=== PATIENT | male | born 1995 | race Caucasian/White ===

== ENCOUNTER 2025-06-04 14:17 | Outpatient (AMB) | payer OTHER, SELFPAY ==
--- NOTE | 2025-06-04 14:21 | A.OFFPC_ITS ---
Vital Signs 06/04/25 14:27 Height 5 ft 9.29 in Weight 141 lb 4 oz BMI 20.7 BP 111/69 Blood Pressure Location Lt brachial Position Sitting Pulse 82 Pulse Source Pulse Oximeter Temp 98.1 F Temp Source Oral Pulse Oximetry (%) 95 Oxygen Delivery Method Room Air Intake Visit Reasons: Weight management Intake Note: dysuria, ?infected left big toe Accompanied by: Self / Same As Patient Allergies No Known Allergies Allergy (Verified 06/04/25 14:29) Medication List - Last Reconciled 06/04/25 by Omega Ocampo MD famotidine 40 mg PO DAILY Tobacco use date assessed: 06/04/25 Dental Screening Dental Screen Date: 06/04/25 Did you have a dental visit in the last 12 months?: Yes HPI HPI Comments History of Present Illness Details History of Present Illness The patient is a 29 year old male presenting to [facility] care and to be evaluated for a broken wrist, suspected UTI, fatigue, weight loss, and abdominal pain. Left Radius Fracture: The patient sustained a left radius fracture after falling from a pull-up bar while practicing [employer]. The fracture is described as non-displaced. He is currently taking tramadol for pain and is scheduled to follow up with a specialist next week to determine if surgery is required. Suspected Urinary Tract Infection: The patient reports a random onset of dysuria and increased urinary frequency that began last week. He denies any associated fevers or chills. Fatigue and Unintentional Weight Loss: The patient reports feeling very tired every day and has noticed a decrease in his energy levels, despite going to the gym three times a week. He has also experienced unintentional weight loss, with his weight decreasing from his usual 140-150 lbs to his current weight of 136 lbs. Abdominal Pain: The patient describes a constant pain located under his left ribs that has been present for the past couple of months. The pain occurs when he eats or digests food. He denies any associated gas or acid reflux. Constipation: He reports being constipated for the past week and has been attempting to manage it by drinking prune juice. Painful Lesion on Left Great Toe: For the past year, the patient has had a painful lesion on his left great toe. He describes the pain as being on the inside of the lesion, noticed when stepping on it. He has tried using corn medication and has scraped it himself without resolution. Right Shoulder Pain: The patient reports that his right shoulder has popped out and has been bothering him, but he has not had it medically evaluated. Surgical History: - No prior surgical history. - In-office needle drainage of a throat cyst by an ENT specialist approximately 1-2 months ago. Medications: - Tramadol, taken for pain from broken w rist. 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 - Substance Use: He reports smoking omer sebastianana since age 12, currently about two blunts per day. - Sexual History: He is sexually active and reports using protection. - Exercise: He goes to the gym three tong es per week and participates in [employer]. Family History: - Father: History of cancer, type unspec ified. - Grandmother: History of cancer, type u nspecified. - Mother: History of diabetes. Past Medical History - Patient reports no major medical issue s. - History of a throat cyst, which was dr ge via needle aspiration by an ENT specialist 1-2 months ago. - Tonsillectomy was suggested by the ENT but has not been scheduled. Health Maintenance - The patient is a 29-year-old male esta [facility] primary care. - He has been advised that at his age, s creenings such as for colon cancer are not yet indicated. - Comprehensive baseline lab work, inclu ding STD screening, has been ordered. [facility] Family History (Updated 06/04/25 @ 14:30 by Rebecca Pedraza [facility]) Mother Diabetes Father Heart murmur Social History Housing: House Patient Tobacco Use Status: Never used Tobacco e-Cigarette/Vaping Use: Never Used service: No Current occupational status: unemployed Cognitive needs: No Hearing needs: No Vision needs: No Questionnaire PHQ-9 Over the last 2 weeks, how often have you been bothered by any of the following problems? 1. Little interest or pleasure in doing things: not at all 2. Feeling down, depressed, or hopeless: not at all 3. Trouble falling or staying asleep, or sleeping too much: several days 4. Feeling tired or having little energy: several days 5. Poor appetite or overeating: several days 6. Feeling bad about yourself - or that you are a failure or have let yourself or your family down: not at all 7. Trouble concentrating on things, such as reading the newspaper or watching television: not at all 8. Moving or speaking so slowly that other people could have noticed. Or the opposite - being so fidgety or restless that you have been moving around a lot more than usual: not at all 9. Thoughts that you would be better off or of hurting yourself in some way: not at all Total score: 3 Depression Screening Interpretation: Negative Depression Screening Done: Yes Source: Developed by Drs. Shaji Mejia, Jessica Mata, Ross Maldonado and colleagues, with an educational sj from [employer]. Thrive Questionnaire Date Thrive assessed: 06/04/25 I am a: Patient What is your living situation today?: I have a steady place to live Within the past 12 months, did the food you bought not last and you didn't have the money to get more?: Sometimes True Within the past 12 months, did you worry whether your food would run out before you got money to buy more?: Sometimes True Do you have trouble paying for medicines?: No Do you have trouble getting transportation to medical appointments?: No Do you have trouble paying your heating and electricity bill?: No Do you have trouble taking care of your child, family member or friend?: No Do you have trouble with day-to-day activities such as bathing, preparing meals, shopping, managing finances, etc.?: No Are you currently unemployed and looking for a job?: No Are you interested in more education?: No Please select the resources that you would like help with: None Currently or been in a relationship where the following occur: I choose not to answer THRIVE Score: 2 AUDIT C Alcohol Use Questionnaire (AUDIT-C) 1. How often do you have a drink containing alcohol?: Never Total Score: 0 VIDA-7 AMB Questionnaire VIDA-7 Date VIDA - 7 assessed: 06/04/25 Feeling nervous, anxious, or on edge: 0 = Not at all Not being able to stop or control worryin = Several days Worrying too much about different things: 1 = Several days Trouble relaxin = Several days Being so restless that it is hard to sit still: 0 = Not at all Becoming easily annoyed or irritable: 1 = Several days Feeling afraid as if something awful might happen: 0 = Not at all Total VIDA-7 score (0-4 normal; 5-9 mild; 10-14 moderate; 15-21 severe): 4 Source: Developed by Drs. Shaji Mejia, Jessica Mata, Ross Maldonado and colleagues, with an educational sj from [employer]. Review of Systems Narrative Review of Systems - Constitutional: Reports fatigue, low energy, and unintentional weight loss. - Denies fevers or chills. - Genitourinary: Reports dysuria and increased urinary frequency. - Gastrointestinal: Reports constant postprandial pain under the left ribs and constipation. - Denies gas or acid reflux. - Musculoskeletal: Reports pain from a left wrist fracture and a right shoulder that has previously popped out. - Integumentary: Reports a painful lesion on the left great toe for the past year. 10-point ROS reviewed and negative except as noted in HPI Physical exam (Primary Care) Vital Signs: Last Vital Signs Temp 98.1 F 06/04/25 14:27 Pulse 82 06/04/25 14:27 BP 111/69 06/04/25 14:27 Pulse Ox 95 06/04/25 14:27 Oxygen Delivery Method Room Air 06/04/25 14:27 BMI result Body Mass Index 20.7 Tobacco/Smoking Status: Tobacco use Status Tobacco use date assessed 06/04/25 06/04/25 14:23 Patient Tobacco Use Status Never used Tobacco 06/04/25 14:34 e-Cigarette/Vaping Use Never Used 06/04/25 14:23 PHQ-9: PHQ-9 Score PHQ-9: Total score 3 06/04/25 14:23 Depression Screening Interpretation: Negative Thrive Assessment: Date of Thrive Assessment Date Thrive assessed 06/04/25 06/04/25 14:23 Currently or been in a relationship where the following occur: I choose not to answer Narrative Physical Exam General: Well-appearing, in no acute distress. Vital signs: Within normal limits. HEENT: Normocephalic, atraumatic. PERRLA, EOMI. Conjunctiva clear, sclera anicteric. Oropharynx clear, mucous membranes moist. TMs intact bilaterally. Slight redness in the ear canal, possibly due to Q-tip use. Neck: Supple, no lymphadenopathy, no thyromegaly, no JVD or carotid bruits. Cardiovascular: RRR, normal S1/S2, no murmurs, rubs, or gallops. Peripheral pulses 2+ and symmetric. No edema. Respiratory: Lungs clear to auscultation bilaterally, no wheezes, rales, or rhonchi. Normal effort. Abdomen: Soft, non-tender, non-distended. Normoactive bowel sounds. No hepatosplenomegaly, no masses. Reports constant pain under the left ribs when eating. MSK: Full range of motion, no joint swelling or deformity. Normal gait. Right shoulder has a history of dislocation and is currently bothering the patient. Left wrist with radial fracture. Skin: Warm, dry, intact. No rashes, lesions, or pallor. Callus or possible wart on the left big toe, painful upon stepping. Neuro: Alert and oriented x3. Cranial nerves II-XII intact. Strength 5/5 throughout. Sensation intact. Reflexes 2+ symmetric. Normal coordination and gait. Psych: Appropriate mood and affect. Normal judgment and insight. Reports feeling tired and losing weight, with a current weight of 136 lbs, down from 140-150 lbs. Coding Level of Care Code New Pt Level 4 (59702) Add On Problem Visit Only Diagnoses Left radial fracture S52.92XA UTI (urinary tract infection) N39.0 Fatigue R53.83 Unintentional weight loss R63.4 Abdominal pain R10.9 Constipation K59.00 Right shoulder injury S49.91XA Corns and callus L84 Assessment & Plan Assessment & Plan (1) Left radial fracture: Code(s): S52.92XA - Unspecified fracture of left forearm, initial encounter for closed fracture Category: Medical (2) UTI (urinary tract infection): Code(s): N39.0 - Urinary tract infection, site not specified Category: Medical (3) Fatigue: Code(s): R53.83 - Other fatigue Category: Medical (4) Unintentional weight loss: Code(s): R63.4 - Abnormal weight loss Category: Medical (5) Abdominal pain: Code(s): R10.9 - Unspecified abdominal pain Category: Medical (6) Constipation: Code(s): K59.00 - Constipation, unspecified Category: Medical (7) Right shoulder injury: Code(s): S49.91XA - Unspecified injury of right shoulder and upper arm, initial encounter Category: Medical (8) Corns and callus: Code(s): L84 - Corns and callosities Category: Medical Plan Consent The risks, benefits, and alternatives of obtaining comprehensive bloodwork were discussed with the patient. The planned tests, including a comprehensive metabolic panel, complete blood count, HbA1c, hepatitis panel, HIV, lipid panel, magnesium, thyroid studies, vitamin B12, folate, vitamin D, and testosterone levels, were reviewed. The patient also requested and consented to additional screening for chlamydia and gonorrhea. He verbally agreed to proceed with the proposed laboratory testing. Patient was informed and verbally consented to the use of an ambient scribe for clinic note documentation during this visit. Plan 1. Establishment Of Care And Health Maintenance - Comprehensive lab work was ordered for a baseline health overview, including a CMP, CBC, HbA1c, lipid panel, magnesium, thyroid function tests, vitamin B12, folate, and vitamin D levels. - Follow-up appointment scheduled in two weeks to review lab results. 2. Fatigue And Unintentional Weight Loss - To investigate potential etiologies, a testosterone level was added to the comprehensive lab panel. - Further assessment will be guided by the results of the complete lab workup, including thyroid function, CBC, and vitamin levels. 3. Abdominal Pain - A trial of famotidine was prescribed to be taken in the morning to assess for an acid-related etiology. - The patient will monitor his symptoms and report on the medication's effectiveness at the follow-up visit. 4. Dysuria And Urinary Frequency - Urinalysis was included in the day's lab orders to evaluate for a urinary tract infection. 5. Screening For Sexually Transmitted Infections - Panel for HIV, hepatitis B, hepatitis C, and syphilis was ordered. - Per the patient's request, testing for chlamydia and gonorrhea was also added. 6. Left Radius Fracture - The patient will continue to follow up with his surgical nurse for ongoing management and to handle any necessary paperwork. 7. Painful Lesion On Left Great Toe - A referral was placed to a assistant professor of psychology, Dr. Guillaume, for further evaluation and management of the lesion, which is suspected to be a plantar wart. 8. Constipation - The patient was advised to increase water intake and utilize zgpt-rik-xeuzauj options such as prune juice, prunes, or MiraLAX for relief. Discussion Notes As this was our first meeting, I explained to the patient the need for comprehensive bloodwork to get a baseline overview of his health. I reviewed the list of labs, which will screen for metabolic issues, anemia, diabetes, infections, thyroid dysfunction, and vitamin deficiencies, as these could con tribute to his fatigue and weight loss. At his request, I also added a testosterone level and screenings for chlamydia and gonorrhea. For his LUQ pain, I suspect an acid-related issue and have prescribed a trial of famotidine. I advised him to follow up in two weeks, at which point we will review all lab results and assess the efficacy of the famotidine. Regarding the painful lesion on his toe, I believe it is more likely a plantar wart than a fungus, and I have referred him to podiatry for definitive diagnosis and treatment. We also discussed that management of his wrist fracture should cont inue under the care of his strategic communications specialist. Patient Instructions - Please go to the lab to have your blood and urine collected today. - will send empiric antibiotics for suspected urinary tract infection - Make sure your lab work is completed before your follow-up appointment in two weeks. - Take one tablet of famotidine each morning for your stomach pain. - For constipation, drink plenty of water and you may use glin-rqg-flfuzlc remedies like prune juice or MiraLAX. - We have sent a referral for you to see the foot doctor (assistant professor of psychology) for the painful spot on your big toe. - Continue to follow the instructions from your wrist specialist regarding your fracture. - Your prescription for famotidine has been sent to the [facility] on [facility]. Medical Decision Making The patient is a 29-year-old male presenting to [facility] primary care with multiple acute and chronic complaints. His constellation of symptoms, including significant fatigue, unintentional weight loss, and low energy, necessitates a broad initial laboratory workup to rule out common etiologies such as anemia, thyroid dysfunction, metabolic abnormalities, vitamin deficiencies, and hypogonadism. His urinary symptoms of dysuria and frequency are suspicious for a UTI, which will be evaluated with urinalysis. The patient's constant epigastric pain related to eating, although lacking classic reflux symptoms, warrants an empiric trial of an H2 leticia; therefore, I have prescribed famotidine. His painful plantar lesion on the left great toe, present for a year and painful with pressure, is clinically more consistent with a plantar wart than a fungus, justifying a referral to podiatry for probable ablation or treatment. Management of his acute left radius fracture will be deferred to the strategic communications specialist he is already established with. Given his sexual activity, comprehensive STD screening is prudent and was ordered per his request. The plan is to review all diagnostic findings at a 2-week follow-up to formulate a more targeted management strategy. Total Time Statement 30 min Total time spent caring for the patient today includes pre-visit chart review, documentation, review of laboratory and diagnostic imaging results, medication reconciliation, medically necessary evaluation, counseling on diagnoses, care coordination, ordering appropriate tests and medications, review of tests performed by other providers, reporting test results to the patient, and communication with other healthcare providers. Orders: Orders Syphilis Screen Today Z13.9 - Encounter for screening, unspecified Comprehensive Met. Panel Today Z13.9 - Encounter for screening, unspecified Hepatitis C Antibody Today Z13.9 - Encounter for screening, unspecified HIV Ab/Ag Today Z13.9 - Encounter for screening, unspecified Hepatitis B Surface Antibody Today Z13.9 - Encounter for screening, unspecified Testosterone, Free/Total Today Z13.9 - Encounter for screening, unspecified Influenza [id number] Immunization Today Z23 - Encounter for immunization Complete Blood Count Auto Diff Today Z13.9 - Encounter for screening, unspecified Hepatitis B Surface Antigen Today Z13.9 - Encounter for screening, unspecified TSH reflex Free T4 Today Z13.9 - Encounter for screening, unspecified UA CC w/rflx Micro + Cult Today Z13.9 - Encounter for screening, unspecified Lipid Panel Today Z13.9 - Encounter for screening, unspecified Vitamin B12 and Folate Today Z13.9 - Encounter for screening, unspecified Hemoglobin A1c Today Z13.9 - Encounter for screening, unspecified Magnesium Today Z13.9 - Encounter for screening, unspecified Vitamin D 25-OH (D2 and D3) Today Z13.9 - Encounter for screening, unspecified CT NG by PCR Urine Today Z13.9 - Encounter for screening, unspecified Referrals Podiatry Referral L84 - Corns and callosities Medications: New Fluarix [id number] (PF) (flu vac ts 2024-(6mos up)-PF) 0.5 mL IM ONCE 0.5 mL 0RF NS Z23 - Encounter for immunization famotidine 40 mg PO DAILY 30 tabs 0RF nitrofurantoin macrocrystal must administer with a meal/food 100 mg PO Q12H 10 caps 0RF
[2025-06-04 14:27] VITALS: BP 111/69; PULSE 82; TEMP 36.7; O2SAT 95; BMI 20.7
--- OUTSIDE RECORDS SUMMARY | 2025-06-04 15:36 | XMS_ITS | Clinical Summary ---
Author Organization [facility] Address [address] [place], [place] [id number] Phone Care Team Providers Care Percussion Teacher Name Role Phone Pcp, Unknown Primary Care Provider Unavailabl e Social History Tobacco Use Types Packs/Day Years Used Date Smoking Tobacco: Never Assessed Education Answer Date Recorded Are you interested in more education? Not on christiana e 10/09/2022 Are you concerned about learning? Not on file 10/09/2022 No 10/09/2022 No 10/09/2022 Digital Access Answer Date Recorded No 11/09/2022 No 11/09/2022 Reliable internet access at home? Not on file 11/09/2022 Device with a working camera? Not on file Sex and Gender Information Value Date Recorded Sex Assigned at Not on file Legal Sex Male 2:55 PM EDT Gender Identity Not on file Sexual Orientation Not on file Plan of Treatment Not on file Medical Devices Not on file Care Teams Percussion Teacher Relationship Specialty Start Date End Date Pcp, Unknown PCP - General 01/18/22 Additional Source Comments The information contained in this document represents components of the legal health record. It is not the complete legal health record.[facility]
--- OUTSIDE RECORDS SUMMARY | 2025-06-04 15:36 | XMS_ITS | Data Portability ---
Author Organization [place] - [facility], Allergy Address [address] [place] [phone] Assessment No assessment recorded. Plan of Treatment Reminders Order Date Submit Date Provider Last Modified By Organization Details Last Modified Time Details Appointments None recorded. Lab None recorded. Referral None recorded. Procedures None recorded. Surgeries tonsillect jessica (SURG) 2024 025 [email or web address] Not available 5 06:49:03 Imaging None recorded. Medication Orders None recorded. Patient TargetsNo targets recorded. Patient InstructionsNo instructions recorded. Reason for Referral None Reported. Problems Name Problem SNOMED Code Status Onset Date Resolution Date Notes Provider Name and Address Organization Details Recorded Time Peritonsillar abscess 58055011 Active 2024 MONROE SANCHEZ MD [address] [place] [address], [phone], [facility] - [facility] 5 09:39:56 Problem Notes None recorded. Procedures Surgical History Date Name Laterality Status Provider Name and Address Organization Details Recorded Time 12/22/19 25 I & D Peritonsillar Abscess completed MONROE SANCHEZ MD [address] [place] [address], [phone], [facility] - [facility] 12/21/2024 09:39:44 Imaging Results None recorded. Procedure Notes None recorded. Medical Equipment None Reported. Allergies No known drug allergies Medications Name Sig Start Date Stop Date Status Note LastModified by Organization Details LastModified Time amoxicillin 500 mg tablet Take 1 tablet every 8 hours by oral route. active Not Available Not Available No t Available Tylenol 325 mg tablet Take 2 tablets every 6 hours by oral route. active Not Available Not Available No t Available Vitals Date Recorded Body height Body mass index (BMI) Body weight Provider Name and Address Organization Details Last Updated DateTime 12/21/2024 167.64 cm 22.6 kg/m2 04147.93 g Valeria Reid [place] - [facility] 12/21/2024 09:23:07 Social History None recorded. Functional Status None recorded. Mental Status None recorded. Family History Nothing Reported. Medical History No medical history recorded. Past Encounters Encounter ID Performer Location Encounter Start Date Encounter Closed Date Diagnosis/Indication Diagnosis SNOMED-CT Code Diagnosis ICD10 Code Diagnosis IMO Codes Diagnosis Note [id number] MONROE SANCHEZ MD [facility] [address] [phone] 12/21/2024 08:54:37 12/21/2024 09:55:32 Peritonsillar abscess [id number] J36 [id number] 29-year-ol d male presents today for evaluation of right sided [employer]. He had a CT scan showing 2 cm irregular collection in the right tonsil. He feels improved with medical management . He does have fullness and erythema at the right soft palate. There was purulent drainage with aspiration so I did perform incision and drainage which he did tolerate with some discomfort . We discussed symptoms which would necessitat e repeat evaluation and drainage. He should finish the antibiotic s which were prescribed in the emergency department . He has had 2 peritonsil lar abscesses requiring drainage. I recommende d tonsillect jessica. Follow-up in 1 to 2 weeks to discuss further. I would recommend that the abscess heals fully prior to surgery which should be at minimum 6 weeks out. Health Concerns Section Related Observation LastModified by Organization Detai ls LastModified Time None Recorded Concern Status LastModified by Organization Details LastModified Time None Recorded Advance Directives Directive None Recorded Payers Insurance Date Sequence Insurance Name Policy Number Policy Capps Covered Member ID Capps Member ID Guarantor Name 02/26/2025 1 [employer] (POS) [id number] Dewey Villareal [id number] 7 Dewey Villareal Notes Date Note Type Note Provider Name and Address Organization Details Recorded Time 12/21/2024 text/html 29-year-old male presents today for evaluation of right sided [employer]. He was seen at [facility] emergency department last night. He was given antibiotics and steroids with improvement. He had a CT showing an irregularly peripherally enhancing fluid collection in the right palate teen tonsil estimated at 2.1 x 1.7 x 1.7 cm in size with a small collection present within the collection. WBC 20. Strep mono and viral panel were negative. Feels better since yesterdayAbscess 2 years ago which was drainedCan swallow nowEar ache yesterday, not today Otherwise healthy MONROE SANCHEZ MD [address] [place] [address], [place], [phone], [facility] - [facility] 12/21/2024 10:38:01
--- OUTSIDE RECORDS SUMMARY | 2025-06-04 15:36 | XMS_ITS | Clinical Summary ---
Author Organization [facility] Address [address] [place] [address] Phone Care Team Providers Care Audio Visual Specialist Name Role Phone Physician, No Pcp Primary Care Provider Unavaila ble Allergies No known active allergies Medications No known medications Medical History Medical History Date Comments No pertinent past medical history Social History Tobacco Use Types Packs/Day Years Used Date Smoking Tobacco: Never Assessed Sex and Gender Information Value Date Recorded Sex Assigned at Not on file Legal Sex Male 12:59 AM EST Gender Identity Not on file Sexual Orientation Not on file Last Filed Vital Signs Vital Sign Reading Time Taken Comments Blood Pressure 109/69 12/20/2024 10:14 PM EDT Pulse 83 12/20/2024 10:14 PM EDT Temperature 37.2 C (98.9 F) 12/20/2024 10:14 PM EDT Respiratory Rate 17 12/20/2024 10:14 PM EDT Oxygen Saturation 96% 12/20/2024 10:14 PM EDT Inhaled Oxygen Concentration - - Weight 63.5 kg (140 lb) 12/20/2024 4:33 PM EDT Height 167.6 cm (5' 6 ) 12/20/2024 4:33 PM EDT Body Mass Index 22.6 12/20/2024 4:33 PM EDT Plan of Treatment Health Maintenance Due Date Last Done Comments HPV Vaccines (1 - 3-dose SCDM series) 2020 Depression Screening 06/13/2024 HIV Screening 12/21/2024 Hepatitis C Screening 12/21/2024 Social Influencers of Health Screening 12/21/2024 COVID-19 Vaccine ( season) 2025 Influenza Vaccine (#1) 2025 DTaP,Tdap,and Td Vaccines (8 - Td or Tdap) 09/12/2028 09/12/2018, 05/27/2005, 09/09/1998, Additional history exists RSV Immunization Adult Patients (1 - 1-dose 75+ series) 2068 Hepatitis B Vaccines Completed 08/23/1994, 1993, 1993 HIB Vaccines Completed 12/20/1994, 03/13, 1993 IPV Vaccines Completed 09/09/1998, 03/13, 1993, Additional history exists MMR Vaccines Completed 09/23/1998, 12/20/1994 Varicella Vaccines Completed 10/24/2009, 09/09/1998 Meningococcal ACWY Vaccine Completed 10/27/2010 Hepatitis A Vaccines Aged Out No long er eligible based on patient's age to complete this topic Meningococcal B Vaccine Aged Out No l onger eligible based on patient's age to complete this topic Pneumococcal Vaccine: Pediatrics (0 to 5 Years) and At-Risk Patients (6 to 49 Years) Aged Out No longer eligible based on patient's age to complete this topic RSV Immunization Patients Under 20 months Aged Out No longer eligible based on patient's age to complete this topic Insurance [employer] Care Teams Audio Visual Specialist Relationship Specialty Start Date End Date Physician, No Pcp PCP - General 12/20/24
== END 2025-06-04 14:55 | disposition home or self-care (01) ==
LOC: HO.HMCFMS 14:18
PROVIDERS: Visit Provider Student in an Organized Health Care Education/Training Program
DX: S52.92XA Unspecified fracture of left forearm, initial encounter for closed fracture (principal); N39.0 Urinary tract infection, site not specified; R53.83 Other fatigue; R63.4 Abnormal weight loss; R10.9 Unspecified abdominal pain; K59.00 Constipation, unspecified; S49.91XA Unspecified injury of right shoulder and upper arm, initial encounter; L84 Corns and callosities

== ENCOUNTER 2025-06-04 14:17 | Outpatient (REF) | payer OTHER, SELFPAY ==
--- OUTSIDE RECORDS SUMMARY | 2025-06-04 16:19 | XMS_ITS | Data Portability ---
Author Organization [place] - [facility], Allergy Address [address] [place] [phone] Assessment No assessment recorded. Plan of Treatment [...] Address Organization Details Recorded Time Peritonsillar abscess 68069854 Active 2024 MONROE SANCHEZ MD [address] [place] [address], [phone], [facility] - [facility] 5 09:39:56 Problem Notes None recorded. Procedures Surgical History Date Name Laterality Status Provider Name and Address Organization Details Recorded Time 12/22/19 25 I & D Peritonsillar Abscess completed MONROE SANCHEZ MD [address] [place] [address], [phone], [facility] - [facility] 12/21/2024 09:39:44 Imaging Results None recorded. [...] Updated DateTime 12/21/2024 167.64 cm 22.6 kg/m2 97743.93 g Valeria Reid [place] - [facility] 12/21/2024 09:23:07 Social History None recorded. Functional Status None recorded. Mental Status None recorded. Family History Nothing Reported. Medical History No medical history recorded. Past Encounters Encounter ID Performer Location Encounter Start Date Encounter Closed Date Diagnosis/Indication Diagnosis SNOMED-CT Code Diagnosis ICD10 Code Diagnosis IMO Codes Diagnosis Note [id number] MONROE SANCHEZ MD [facility] [address] [address] 12/21/2024 08:54:37 12/21/2024 09:55:32 Peritonsillar abscess [id number] J36 [id number] 29-year-ol d male presents today for evaluation of right sided [employer]. He had a CT scan showing 2 [...] ID Guarantor Name 02/26/2025 1 [employer] (POS) [id number] Dewey Villareal [id number] Dewey Villareal Notes Date Note Type Note Provider Name and Address Organization Details Recorded Time 12/21/2024 text/html 29-year-old male presents today for evaluation of right sided [employer]ATOR. He was seen at [facility] emergency department last night. He was given [...] not today Otherwise healthy MONROE SANCHEZ MD [address] [place] [address], [place], [phone], [facility] - [facility] 12/21/2024 10:38:01
[2025-06-04 18:29] LABS: MANUAL DIFF FLAG NO
[2025-06-04 18:38] LABS: Hematocrit 42.5 % (42.0-52.0); Hemoglobin 14.3 g/dl (14.0-18.0); Imm Gran Abs Auto 0.01 X10*3/uL (0.00-0.03); Imm Gran Pct Auto 0.1 % (0.0-0.4); Lymphocytes Absolute Auto 2.2 X10*3/uL (1.2-4.9); Mean Corpuscular HGB Conc 33.6 g/dl (31.0-36.0); Mean Corpuscular Hemoglobin 27.7 pg (27.0-33.0); Mean Corpuscular Volume 82.4 fL (80.0-98.0); NRBC Abs Auto 0.000 X10*3/uL (0.0-0.012); NRBC Pct Auto 0.0 /100WBC (0.0-0.2); Platelet Count 275 X10*3/uL (160-400); Red Blood Count 5.16 X10*6/uL (4.60-5.80); White Blood Count 6.9 X10*3/uL (4.8-10.8)
[2025-06-04 19:05] LABS: Alanine Aminotransferase 20 U/L (0-40); Albumin Level 4.6 g/dL (3.5-5.0); Alkaline Phosphatase 87 U/L (39-117); Anion Gap 12 (12-20); Aspartate Amino Transferase 35 U/L (5-37); Blood Urea Nitrogen 12 mg/dL (9-16); Calcium 9.7 mg/dL (8.4-10.2); Carbon Dioxide 23 mmol/L (22-29); Chloride 109 mmol/L (96-108); Cholesterol 213 mg/dL (<200); Estimated Glomerular Filt Rate > 60; HDL Cholesterol 39 mg/dL (>40); Magnesium 2.2 mg/dL (1.6-2.6); Potassium 4.1 mmol/L (3.3-5.1); Sodium 140 mmol/L (135-145); Total Protein 7.6 g/dL (6.5-8.0); Triglycerides 136 mg/dL (<150)
[2025-06-04 19:24] LABS: Folate 6.1 ng/mL (> or = 4.0); Vitamin B12 983 pg/mL (200-900)
[2025-06-04 23:00] LABS: CT PCR Urine NOT DETECTED (Not Detect.); NG PCR Urine NOT DETECTED (Not Detect.)
[2025-06-05 03:41] LABS: Syphilis Screen Nonreactive (Nonreactive)
[2025-06-05 04:05] LABS: HBS Num1 1.36 mIU/mL (0-7.99); HBsAGNum1 0.46 S/CO (0.00-0.99); HIV Num 1 0.06 S/CO (0.00-0.99); Hepatitis B Surface Antigen Negative (Negative); ~HepC Num1 0.11 S/CO (0.00-0.79); ~Hepatitis B Surface Antibody NONREACTIVE (Nonreactive); ~Hepatitis C Antibody Nonreactive (Nonreactive)
[2025-06-08 12:22] LABS: Vitamin D 25-OH, D2 <4 ng/mL; Vitamin D 25-OH, D3 15 ng/mL; Vitamin D 25-OH, Total 15 ng/mL (30-100)
[2025-06-09 17:43] LABS: Testosterone, Free 67.4 pg/mL (35.0-155.0)
== END 2025-06-04 14:18 | disposition home or self-care (01) ==
LOC: HO.HKASLDS 14:17
PROVIDERS: PCP Student in an Organized Health Care Education/Training Program; Visit Provider Student in an Organized Health Care Education/Training Program
DX: R10.9 Unspecified abdominal pain (principal); Z13.31 Encounter for screening for depression; Z13.39 Encounter for screening examination for other mental health and behavioral disorders; Z13.1 Encounter for screening for diabetes mellitus; Z13.6 Encounter for screening for cardiovascular disorders; R63.4 Abnormal weight loss
CPT/HCPCS: 80053; 80061; 82306; 82607; 82746; 83036; 83735; 84402; 84403; 84443; 85025; 86706; 86780; 86803; 87340; 87389; 87491; 87591; 96127